=== PATIENT | female | born 1995 | race Caucasian/White ===

== ENCOUNTER 2024-04-08 13:58 | Outpatient (CLI) | payer OTHER, SELFPAY ==
--- NOTE | 2024-04-08 14:03 | MM_ITS ---
WS: [id number] BILATERAL 3D TOMOSYNTHESIS DIGITAL DIAGNOSTIC MAMMOGRAPHY WITH CAD CLINICAL INFORMATION: LUMP IN RIGHT BREAST HISTORY: COMPARISON: None. TECHNIQUE: Bilateral CC, MLO, and ML views. FINDINGS: The breasts are composed of extremely dense tissue, which can limit the detection of small underlying mass lesions. Deep to the palpable marker anterior RIGHT breast is a partially obscured ovoid lesion measuring 1.5 cm. Ultrasound of this area is pending. Unremarkable LEFT breast. ULTRASOUND BREAST RIGHT TECHNIQUE: Ultrasound right breast focused area of concern. CLINICAL INFORMATION: LUMP IN RIGHT BREAST FINDINGS: Ultrasound RIGHT breast in the area of concern. Deep to the palpable marker at the 12 o'clock positio n patient directed is several clustered cysts corresponding to the palpable abnormality. Incidental d uctal ectasia. Largest cyst measures approximately 1.4 x 1.3 x 0.8 cm. Findings are benign. Recommend annual screen mammography age 40 MM/MM diag BI tomosynthesis [id number] IMPRESSION: DENSITY: The breasts are extremely dense, which lowers the sensitivity of mammo graphy. BI-RADS: 2 - Benign FOLLOW UP: Age 38 Recommend annual screen mammography age 38
== END 2024-04-08 13:59 | disposition home or self-care (01) ==
LOC: RAD 14:00
PROVIDERS: PCP Family Medicine; Visit Provider Nurse Practitioner Family
DX: N63.15 Unspecified lump in the right breast, overlapping quadrants (principal); R92.343 Mammographic extreme density, bilateral breasts; N60.41 Mammary duct ectasia of right breast; R92.8 Other abnormal and inconclusive findings on diagnostic imaging of breast
CPT/HCPCS: 76642; 77062; G0279